=== PATIENT | male | born 1960 | race Caucasian/White ===

== ENCOUNTER 2019-06-03 21:29 | Emergency (ER) | payer OTHER ==
[2019-06-03 21:42] VITALS: PULSE 100
[2019-06-03 21:52] VITALS: BP 134/90
--- NOTE | 2019-06-03 22:12 | EDM.PDOC ---
ED HPI GENERAL MEDICAL PROBLEM - General Chief Complaint: Respiratory Problem Stated Complaint: FLU Time Seen by Provider: 06/03/19 21:55 Source of Information: Reports: Patient History Limitations: Reports: No Limitations - History of Present Illness INITIAL COMMENTS - FREE TEXT/NARRATIVE: 59-year-old male with a scratchy throat, cough, generalized body aches and low- grade fever for the past 12 to 24 hours. He did get an influenza vaccine, but he is interested in if he has a positive influenza as he would be interested in treatment. No nausea or vomiting. Denies shortness of breath, the cough is nonproductive. He is a non-smoker. Onset: Gradual Duration: Hour(s): (Over the past 24 hours) Associated Symptoms: Reports: Cough, Fever/Chills, Other (Generalized body aches ). 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 Head Pain Score (Numeric/FACES): 5 - Related Data Allergies Allergy/AdvReac Type Severity Reaction Status Date / Time Food Dye Allergy Facial Uncoded 06/03/19 21:45 Swelling Home Meds: Home Meds Fluticasone Propionate 16 gm NS ASDIRECTED 11/29/15 [History] Triamterene/Hydrochlorothiazid [Triamterene-HCTZ 37.5-25 MG] 1 each PO DAILY [History] Past Medical History Cardiovascular History: Reports: Hypertension Musculoskeletal History: Reports: None - Infectious Disease History Infectious Disease History: Reports: Chicken Pox, Measles, Mumps - Past Surgical History GI Surgical History: Reports: Cholecystectomy, Other (See Below) Other GI Surgeries/Procedures: gall stones remove Musculoskeletal Surgical History: Reports: Knee Replacement Social & Family History - Tobacco Use Smoking Status *Q: Current Status Unknown Second Hand Smoke Exposure: No - Caffeine Use Caffeine Use: Reports: Coffee - Recreational Drug Use Recreational Drug Use: No ED ROS GENERAL - Review of Systems Review Of Systems: See Below Constitutional: Reports: Chills, Malaise HEENT: Reports: Rhinitis, Throat Pain (Scratchy throat) Respiratory: Reports: Cough. Denies: Shortness of Breath GI/Abdominal: Denies: Nausea, Vomiting Musculoskeletal: Reports: Muscle Pain (Generalized body aches) Skin: Denies: Rash ED EXAM, GENERAL - Physical Exam Exam: See Below Exam Limited By: No Limitations General Appearance: Alert, No Apparent Distress Eye Exam: Bilateral Eye: Normal Inspection Ears: Normal TMs Throat/Mouth: Other (Moderate pharyngeal erythema, no exudate) Respiratory/Chest: No Respiratory Distress, Lungs Clear Cardiovascular: Regular Rate, Rhythm Neurological: Alert, Oriented Psychiatric: Normal Affect, Normal Mood Skin Exam: Warm, Dry Course - Vital Signs Last Recorded V/S: Last Vital Signs Temp 99.6 F 06/03/19 21:50 Pulse 100 06/03/19 21:50 Resp 16 06/03/19 21:50 BP 134/90 06/03/19 21:50 Pulse Ox 94 L 06/03/19 21:50 - Re-Assessments/Exams Free Text/Narrative Re-Assessment/Exam: 06/03/19 22:12 Influenza antigens are negative. Some Tessalon Perls were given for cough suppression, and he was encouraged to rest and get fluids for the next couple of days rechecking if worsening. Departure - Departure Time of Disposition: 22:19 Disposition: Home, Self-Care 01 Clinical Impression: Viral respiratory illness - Discharge Information Instructions: Viral Respiratory Infection, [id number] Referrals: Aquilino Figueroa MD [Primary Care Provider] - Forms: ED Department Discharge Care Plan Goals: Rest, fluids, use cough suppression medicine as prescribed, and increase activity as tolerated. Return if worsening such as difficulty breathing or other concerns. Sepsis Event Note - Evaluation Sepsis Screening Result: No Definite Risk - Focused Exam Vital Signs: Vital Signs Temp Pulse Resp BP Pulse Ox 06/03/19 21:50 99.6 F 100 16 134/90 94 L 06/03/19 21:40 99.5 F 100 16 144/96 H 94 L Date Exam was Performed: 06/03/19 Time Exam was Performed: 22:34
== END 2019-06-03 22:18 | disposition home or self-care (01) ==
LOC: JP.ED 21:29
DX: B34.9 Viral infection, unspecified (principal); I10 Essential (primary) hypertension; Z91.02 Food additives allergy status
CPT/HCPCS: 87804; 87804-59; 99283

== ENCOUNTER 2023-03-27 08:55 | Day surgery (SDC) | payer OTHER ==
[2023-03-27] MEDS ORDERED: Sodium Chloride 0.9% 1,000 ML IV SCH (09:15)
[2023-03-27] MEDS ORDERED: Midazolam 1 MG/ML 2 ML SDV ONE (10:31)
[2023-03-27] MEDS ORDERED: Propofol 200 MG/20 ML SDV ONE (10:31)
[2023-03-27] MEDS ORDERED: fentaNYL 50 MCG/ML SDV ONE (10:31)
[2023-03-27 12:26] VITALS: BP 118/75; PULSE 64
== END 2023-03-27 12:39 | disposition home or self-care (01) ==
LOC: JP.SDS 08:55
PROVIDERS: ATTEND Surgery
DX: Z12.11 Encounter for screening for malignant neoplasm of colon (principal); D12.2 Benign neoplasm of ascending colon; Z88.8 Allergy status to other drugs, medicaments and biological substances
CPT/HCPCS: 45385; J2250; J2704; J3010; J7030; 88305